=== PATIENT | male | born 1940 | race Caucasian/White ===

== ENCOUNTER 2020-02-12 07:28 | Outpatient (CLI) | payer MEDICARE, OTHER, SELFPAY ==
--- NOTE | 2020-02-12 07:39 | ECHO_ITS ---
Patient Info Name: Mendez Smith Age: 79 years : 1940 Gender: Male Ht: 70 in Wt: 176 lbs BSA: 1.99 m2 HR: 70 bpm BP: 135 / 83 mmHg Technical Quality: Fair Exam Date: 02/12/2020 7:52 AM Exam Location: [facility] Patient Status: Outpatient Admit Date: 02/12/2020 Staff Ordering Physician: Demarcus Spencer MD Cook Pressure: Brittnee Aguillon RDCS Attending Provider: Demarcus Spencer MD Referring Physician: Johanna BLOOM; Exam Type: CA echo doppler color flow Study Info Indications R01.1 - Cardiac murmur, unspecified Complete two-dimensional, color flow and Doppler transthoracic echocardiogram is performed. Summary 1. Left ventricular chamber dimension is normal. 2. Left ventricular systolic function is normal, estimated at 65-70%. 3. There is mildly increased left ventricular wall thickness. 4. The left ventricular diastolic function is grade I diastolic dysfunction. 5. E/e' 12 is mildly elevated. 6. There is moderate aortic valve sclerosis. 7. There is mild aortic valve stenosis with a peak velocity of 190 cm/s, mean gradient of 9 mmHg, and aortic valve area of 2.2 cm2. 8. There is mild aortic valve regurgitation. 9. The mitral valve has mildly calcified annulus. 10. There is trace tricuspid valve regurgitation. 11. No pulmonary hypertension, estimated pulmonary arterial systolic pressure is 37 mmHg. Left Ventricle E/e' 12 is mildly elevated. Left ventricular chamber dimension is normal. Left ventricular systolic function is normal, estimated at 65-70%. There is mildly increased left ventricular wall thickness. The left ventricular diastolic function is grade I diastolic dysfunction. Right Ventricle Right ventricular chamber dimension is normal. Right ventricular systolic function is normal. Left Atria Left atrial chamber dimension is normal. Right Atria Right atrial chamber dimension is normal. Aortic Valve The aortic valve is trileaflet. There is moderate aortic valve sclerosis. There is mild aortic valve stenosis with a peak velocity of 190 cm/s, mean gradient of 9 mmHg, and aortic valve area of 2.2 cm2. There is mild aortic valve regurgitation. Pulmonic Valve There is no pulmonic regurgitation. Mitral Valve The mitral valve has mildly calcified annulus. There is no mitral valve stenosis. There is no mitral valve regurgitation. Tricuspid Valve There is trace tricuspid valve regurgitation. No pulmonary hypertension, estimated pulmonary arterial systolic pressure is 37 mmHg. Pericardium/Pleural There is no pericardial effusion. Inferior Vena Cava Normal inferior vena cava with >50% collapse upon inspiration consistent with normal right atrial pressure, 5 mmHg. Aorta The aortic root size at the sinus of Valsalva is normal. Left Ventricular Outflow Tract Name Value Normal LVOT 2D LVOT Diameter 2.0 cm LVOT Doppler LVOT Peak Gradient 7 mmHg LVOT Mean Gradient 4 mmHg LVOT VTI 27 cm LVOT VTI/AV VTI Ratio 0.7 LVOT Stroke Volum
== END 2020-02-12 07:29 | disposition home or self-care (01) ==
LOC: ANHCARD 07:30
PROVIDERS: PCP Family Medicine; Visit Provider Family Medicine
DX: R01.1 Cardiac murmur, unspecified (principal)
CPT/HCPCS: 93306

== ENCOUNTER 2020-07-20 01:27 | Outpatient (CLI) | payer MEDICARE, OTHER, SELFPAY ==
[2020-07-20 20:39] LABS: SARS-CoV-2 RNA PCR Negative
== END 2020-07-20 01:28 | disposition home or self-care (01) ==
LOC: ANHCOVIDDT 01:28
PROVIDERS: PCP Family Medicine; Visit Provider Internal Medicine Gastroenterology
DX: Z01.812 Encounter for preprocedural laboratory examination (principal); Z11.59 Encounter for screening for other viral diseases
CPT/HCPCS: 87635; C9803; U0003

== ENCOUNTER 2020-07-22 00:44 | Day surgery (SDC) | payer MEDICARE, OTHER, SELFPAY ==
[2020-07-16 14:04] VITALS: BMI 25.9
[2020-07-22 07:01] VITALS: BP 136/77; PULSE 70; RESP 16; TEMP 36.3; O2SAT 99; BMI 25.9
[2020-07-22] MEDS: LACTATED RINGERS 1,000 ML 150 ML IV CONT (07:09)
--- NOTE | 2020-07-22 07:13 | WPDANESEPPF ---
Anes - Initial Pre Proc Eval Procedure: Operation Date: 07/22/20 08:00 Proposed Procedures p Esophagogastroduodenoscopy - William Roa MD Date/Time: 07/22/20 07:13 Surgeon: William Roa MD Pre Op Diagnosis: Gordon's Esophagus Patient Data Age: 80 Gender: M Height: 5 ft 10 in Weight: 81.8 kg Last Vital Signs Temp 36.3 C L 07/22/20 07:01 Pulse 70 07/22/20 07:01 Resp 16 07/22/20 07:01 BP 136/77 07/22/20 07:01 Pulse Ox 99 07/22/20 07:01 Allergies Allergy/AdvReac Type Severity Reaction Status Date / Time No Known Allergies Allergy Unverified 07/22/20 07:13 Home Medications Medication Instructions Recorded Confirmed Type hydrochlorothiazide 12.5 mg tablet 12.5 mg PO DAILY 07/30/19 07/22/20 History benzonatate 200 mg capsule 200 mg PO TID PRN #30 cap 11/18/19 07/22/20 Rx amlodipine 10 mg tablet 10 mg PO DAILY #90 tablet 06/01/20 07/22/20 Rx finasteride 5 mg tablet 5 mg PO DAILY #90 tablet 06/01/20 07/22/20 Rx lisinopril 40 mg tablet 40 mg PO BID #360 tablet 06/01/20 07/22/20 Rx omeprazole 20 mg capsule,delayed 20 mg PO DAILY #90 cap 06/01/20 07/22/20 Rx release simvastatin 40 mg tablet 40 mg PO DAILY #90 tablet 06/01/20 07/22/20 Rx testosterone 20.25 mg/1.25 gram 1 pump TOPICAL DAILY #150 gm 07/06/20 07/22/20 Rx (1.62 %) transdermal gel pump Patient hx anesthesia problems: none Family hx anesthesia problems: none PMFSH Past Medical History Medical History Aortic valve stenosis with insufficiency Flat feet, bilateral Gastroesophageal reflux disease Grade I diastolic dysfunction Heart murmur Hypertension Hypogonadism male Macular degeneration Polyp of colon Family History Family History Mother No problems noted. Father Acute myocardial infarction Social History Social History Smoking packs per day: 1 Smoking cigarettes per day: 20.0 Years smoked: 30 Smoking pack-years: 30.00 Smoking status: Former smoker Tobacco type: cigarettes Alcohol intake: current Alcohol use details: 5OZ PER DAY Substance use: never Substance use type: does not use Living arrangements: with family Spiritual care concerns: No Anes - Eval Final PreProcedure Day of Procedure 07/22/20 07:13 Patient weight: overweight Heart: regular rate and rhythm Lungs: clear to auscultation Airway: Mallampati scale class II Neurological: alert and oriented Last oral intake: >/= 8 hours ASA classification: III Emergent: no Anesthetic plan: proceed Anesthesia type and monitoring: general GIVS and standard monitoring Informed Consent: The patient's anesthetic plan and its attendant risks and benefits were discussed with the patient/family/POA. Questions were solicited and answers provided to the satisfaction of the patient/family/POA.
--- NOTE | 2020-07-22 08:04 | WPDGICN ---
Assessment and Plan Assessment and plan (1) Gastroesophageal reflux disease: Code(s): K21.9 - Gastro-esophageal reflux disease without esophagitis Status: Acute (2) Gordon's esophagus: Code(s): K22.70 - Gordon's esophagus without dysplasia Status: Acute Assessment and Plan: Patient with known history of Gordon's esophagus. Plan is to continue anti-reflux measures. Omeprazole daily. Follow-up endoscopy for biopsies at about 3 year intervals. This report follow separately. (3) Polyp of colon: Code(s): K63.5 - Polyp of colon Status: Acute Assessment and Plan: Patient has a history of colon polyps in the past. Most recent colonoscopy 2016 showed adenomatous colon polyps. Follow-up endoscopy 2022 is advised. GI Consult Note Consult date/time: 07/22/20 08:04 HPI: Mendez Smith is a 80 year old male Seen in evaluation at the request Dr. Spencer. Patient has a history of Gordon's esophagus. Most recent endoscopy was 3 years ago. Patient states his current weight appetite bowel movements are normal. He denies heartburn. Denies any dysphagia or bleeding. He has been maintained on omeprazole 20 mg p.o. daily. Patient additionally has a history of tubular adenomatous colon polyps in 2017. His family history is noncontributory. Current weight appetite bowel movements are normal. Review of Systems Review of Systems: All systems reviewed & are unremarkable except as noted in HPI and below PMFSH Past Medical History Medical History Aortic valve stenosis with insufficiency Flat feet, bilateral Gastroesophageal reflux disease Grade I diastolic dysfunction Heart murmur Hypertension Hypogonadism male Macular degeneration Polyp of colon Family History Family History Mother No problems noted. Father Acute myocardial infarction Social History Social History Smoking packs per day: 1 Smoking cigarettes per day: 20.0 Years smoked: 30 Smoking pack-years: 30.00 Smoking status: Former smoker Tobacco type: cigarettes Alcohol intake: current Alcohol use details: 5OZ PER DAY Substance use: never Substance use type: does not use Living arrangements: with family Spiritual care concerns: No Meds Home Medications and Allergies Home Medications Medication Instructions Recorded Confirmed Type hydrochlorothiazide 12.5 mg tablet 12.5 mg PO DAILY 07/30/19 07/22/20 History benzonatate 200 mg capsule 200 mg PO TID PRN #30 cap 11/18/19 07/22/20 Rx amlodipine 10 mg tablet 10 mg PO DAILY #90 tablet 06/01/20 07/22/20 Rx finasteride 5 mg tablet 5 mg PO DAILY #90 tablet 06/01/20 07/22/20 Rx lisinopril 40 mg tablet 40 mg PO BID #360 tablet 06/01/20 07/22/20 Rx omeprazole 20 mg capsule,delayed 20 mg PO DAILY #90 cap 06/01/20 07/22/20 Rx release simvastatin 40 mg tablet 40 mg PO DAILY #90 tablet 06/01/20 07/22/20 Rx testosterone 20.25 mg/1.25 gram 1 pump TOPICAL DAILY #150 gm 07/06/20 07/22/20 Rx (1.62 %) transdermal gel pump Allergies Allergy/AdvReac Type Severity Reaction Status Date / Time No Known Allergies Allergy Unverified 07/22/20 07:13 Vital Signs Vital Signs - 24 hr 07/22/20 07:01 Temperature 97.3 F L Pulse Rate 70 Respiratory Rate 16 Blood Pressure 136/77 Pulse Oximetry 99 Exam Narrative: Exam Narrative: Physical exam reveals patient to be alert. Vital signs stable. HEENT exam unremarkable. Lungs are clear to auscultation and percussion heart is without murmur or extra sounds. Abdominal exam bowel sounds are present soft nontender with no organomegaly. Digital external rectal exam normal.
[2020-07-22 08:23] VITALS: BP 101/66; PULSE 69; RESP 24; O2SAT 97
[2020-07-22 08:33] VITALS: BP 100/62; PULSE 69; RESP 16; O2SAT 95
[2020-07-22 08:43] VITALS: BP 107/78; PULSE 66; RESP 18; O2SAT 96
== END 2020-07-22 08:50 | disposition home or self-care (01) ==
PROVIDERS: PCP Family Medicine; Visit Provider Internal Medicine Gastroenterology
PROC: 0DJ08ZZ Inspection of Upper Intestinal Tract, Via Natural or Artificial Opening Endoscopic (ICD-10-PCS; CPT 43235; principal; 2020-07-22 08:00)
DX: K22.70 Barrett's esophagus without dysplasia (principal); K21.9 Gastro-esophageal reflux disease without esophagitis; I10 Essential (primary) hypertension; R01.1 Cardiac murmur, unspecified; I35.2 Nonrheumatic aortic (valve) stenosis with insufficiency; M21.42 Flat foot [pes planus] (acquired), left foot; M21.41 Flat foot [pes planus] (acquired), right foot; E29.1 Testicular hypofunction; H35.30 Unspecified macular degeneration; Z87.891 Personal history of nicotine dependence; Z86.010 Personal history of colon polyps
CPT/HCPCS: 43239; 88305; J2001; J2704; J7120

== ENCOUNTER → 2020-10-22 06:52 | Outpatient (CLI) | payer MEDICARE, OTHER, SELFPAY ==
[2020-10-22 20:53] LABS: SARS-CoV-2 RNA PCR Positive
== END ==
PROVIDERS: PCP Family Medicine; Visit Provider Family Medicine
DX: U07.1 COVID-19 (principal)
CPT/HCPCS: C9803; U0003; U0005

== ENCOUNTER 2020-12-24 15:10 | Outpatient (CLI) | payer MEDICARE, OTHER, SELFPAY | END 2020-12-24 15:11 | disposition home or self-care (01) | LOC: ANHCOVIDVC 15:10 | PROVIDERS: PCP Family Medicine | DX: Z23 Encounter for immunization (principal) | CPT/HCPCS: 0001A; 91300 ==

== ENCOUNTER 2021-01-14 15:03 | Outpatient (CLI) | payer MEDICARE, OTHER, SELFPAY | END 2021-01-14 15:04 | disposition home or self-care (01) | LOC: ANHCOVIDVC 15:03 | PROVIDERS: PCP Family Medicine | DX: Z23 Encounter for immunization (principal) | CPT/HCPCS: 0002A; 91300 ==

== ENCOUNTER 2023-01-12 00:08 | Day surgery (SDC) | payer MEDICARE, OTHER, SELFPAY ==
[2022-12-29 13:35] VITALS: BMI 26.6
[2023-01-12 07:39] VITALS: BP 132/69; PULSE 84; RESP 16; TEMP 36.4; O2SAT 95; BMI 26.4
[2023-01-12] MEDS: LACTATED RINGERS 1,000 ML 150 ML IV CONT (08:04)
--- NOTE | 2023-01-12 08:55 | PM.HPGS ---
History of Present Illness History of Present Illness Consent: Risks, benefits, and alternatives have been discussed and questions answered. Patient agrees to proceed with procedure. Chief complaint: neoplasm screening Narrative: Mendez Smith is a 82 year old male Presents for screening colonoscopy. Patient's current weight appetite and bowel movements are normal. Patient denies abdominal pain. He has had no bleeding. Past medical history significant for colon polyps in 2017. Patient also has a history of Gordon's esophagus recent EGD 2019 revealed no dysplasia. Patient presents today for screening colonoscopy. Review of Systems Review of Systems: Review of systems noncontributory. [facility] Past Medical History Medical History (Updated 01/12/23 @ 08:57 by William Roa MD) Acute bronchitis Acute non-recurrent maxillary sinusitis Aortic valve stenosis with insufficiency echocardiogram on 02/12/2020 with mild aortic stenosis and aortic regurgitation with mild tricuspid regurgitation. BMI 25.0-25.9,adult Chronic pain in left shoulder COVID-19 (10/20/20) Encounter for prostate cancer screening Flat feet, bilateral Gastroesophageal reflux disease Grade I diastolic dysfunction Heart murmur Hypertension Hypogonadism male Total testosterone 987 with free testosterone 7.0 on 01/21/2022. Ingrown right big toenail (~11/2022) Macular degeneration Overweight (BMI 25.0-29.9) Pain involving joints of fingers of both hands Polyp of colon Colonoscopy every [address] Roa Seasonal allergic rhinitis Family History Family History Mother No problems noted. Father Acute myocardial infarction Social History Social History (Updated 08/25/22 @ 15:04 by Adelina Woodruff MA) Smoking packs per day: 1 Smoking cigarettes per day: 20.0 Years smoked: 30 Smoking pack-years: 30.00 Smoking status: Never smoker Tobacco type: cigarettes Alcohol intake: current Drinks per week: 7 Alcohol use details: 4 oz wine daily Substance use: never Substance use type: does not use Current Housing: Decline to Answer Concerned About Future Housing: Decline to Answer Difficulty Paying Gas/Electric Bills: Decline to Answer Difficulty Paying for Meds: Decline to Answer Currently Unemployed: Decline to Answer Education: Decline to Answer Difficulty w/ Childcare or Family Care: Decline to Answer Living arrangements: with family Spiritual care concerns: No Meds Home Medications and Allergies Home Medications Medication Instructions Recorded Confirmed Type fluticasone propionate 50 1 spray intranasal BID 02/09/21 01/12/23 History mcg/actuation nasal spray,suspension amlodipine 10 mg tablet 10 mg PO DAILY #90 tabs 06/13/22 01/12/23 Rx finasteride 5 mg tablet 5 mg PO DAILY #90 tabs 06/13/22 01/12/23 Rx omeprazole 20 mg capsule,delayed 20 mg PO DAILY #90 caps 06/13/22 01/12/23 Rx release simvastatin 40 mg tablet 40 mg PO DAILY #90 tabs 06/13/22 01/12/23 Rx testosterone (AndroGel) 1 pump topical DAILY #150 grams 07/11/22 01/12/23 Rx hydrochlorothiazide 12.5 mg tablet 12.5 mg PO DAILY #90 tabs 09/08/22 01/12/23 Rx lisinopril 40 mg tablet 40 mg PO BID #360 tabs 12/09/22 01/12/23 Rx Allergies Allergy/AdvReac Type Severity Reaction Status Date / Time No Known Allergies Allergy Verified 01/12/23 07:37 Vital Signs Vital Signs - 24 hr 01/12/23 07:39 Temperature 97.6 F Pulse Rate 84 Respiratory Rate 16 Blood Pressure 132/69 Pulse Oximetry 95 Oxygen Delivery Room Air Exam Narrative: Physical exam reveals patient to be alert. Vital signs stable. HEENT exam is unremarkable. Patient is anicteric. Lungs are clear to auscultation and percussion. Heart is without murmur or extra sounds. Abdomen bowel sounds are present soft nontender with no organomegaly. Digital external rectal exa
--- NOTE | 2023-01-12 09:35 | WPDANESEPPF ---
Anes - Initial Pre Proc Eval Procedure: Operation Date: 01/12/23 09:00 Proposed Procedures p Colonoscopy - William Roa MD Date/Time: 01/12/23 09:35 Surgeon: William Roa MD Pre Op Diagnosis: neoplasm screening Patient Data Age: 82 Gender: M Height: 1.75 m Weight: 81.2 kg Last Vital Signs Temp 97.6 F 01/12/23 07:39 Pulse 84 01/12/23 07:39 Resp 16 01/12/23 07:39 BP 132/69 01/12/23 07:39 Pulse Ox 95 01/12/23 07:39 O2 Del Method Room Air 01/12/23 07:39 Allergies Allergy/AdvReac Type Severity Reaction Status Date / Time No Known Allergies Allergy Verified 01/12/23 07:37 Home Medications Medication Instructions Recorded Confirmed Type fluticasone propionate 50 1 spray intranasal BID 02/09/21 01/12/23 History mcg/actuation nasal spray,suspension amlodipine 10 mg tablet 10 mg PO DAILY #90 tabs 06/13/22 01/12/23 Rx finasteride 5 mg tablet 5 mg PO DAILY #90 tabs 06/13/22 01/12/23 Rx omeprazole 20 mg capsule,delayed 20 mg PO DAILY #90 caps 06/13/22 01/12/23 Rx release simvastatin 40 mg tablet 40 mg PO DAILY #90 tabs 06/13/22 01/12/23 Rx testosterone (AndroGel) 1 pump topical DAILY #150 grams 07/11/22 01/12/23 Rx hydrochlorothiazide 12.5 mg tablet 12.5 mg PO DAILY #90 tabs 09/08/22 01/12/23 Rx lisinopril 40 mg tablet 40 mg PO BID #360 tabs 12/09/22 01/12/23 Rx Patient hx anesthesia problems: none Family hx anesthesia problems: none Results Review: All pre-operative results and documents have been reviewed as part of the pre-operative evaluation. [facility] Past Medical History Medical History (Updated 01/12/23 @ 08:57 by William Roa MD) Acute bronchitis Acute non-recurrent maxillary sinusitis Aortic valve stenosis with insufficiency echocardiogram on 02/12/2020 with mild aortic stenosis and aortic regurgitation with mild tricuspid regurgitation. BMI 25.0-25.9,adult Chronic pain in left shoulder COVID-19 (10/20/20) Encounter for prostate cancer screening Flat feet, bilateral Gastroesophageal reflux disease Grade I diastolic dysfunction Heart murmur Hypertension Hypogonadism male Total testosterone 987 with free testosterone 7.0 on 01/21/2022. Ingrown right big toenail (~11/2022) Macular degeneration Overweight (BMI 25.0-29.9) Pain involving joints of fingers of both hands Polyp of colon Colonoscopy every [address] Roa Seasonal allergic rhinitis Family History Family History Mother No problems noted. Father Acute myocardial infarction Social History Social History (Updated 08/25/22 @ 15:04 by Adelina Woodruff MA) Smoking packs per day: 1 Smoking cigarettes per day: 20.0 Years smoked: 30 Smoking pack-years: 30.00 Smoking status: Never smoker Tobacco type: cigarettes Alcohol intake: current Drinks per week: 7 Alcohol use details: 4 oz wine daily Substance use: never Substance use type: does not use Current Housing: Decline to Answer Concerned About Future Housing: Decline to Answer Difficulty Paying Gas/Electric Bills: Decline to Answer Difficulty Paying for Meds: Decline to Answer Currently Unemployed: Decline to Answer Education: Decline to Answer Difficulty w/ Childcare or Family Care: Decline to Answer Living arrangements: with family Spiritual care concerns: No Anes - Eval Final PreProcedure Day of Procedure 01/12/23 09:35 Patient weight: normal Heart: regular rate and rhythm Lungs: clear to auscultation Airway: Mallampati scale class II Neurological: alert and oriented Last oral intake: >/= 8 hours ASA classification: III Emergent: no Anesthetic plan: proceed Anesthesia type and monitoring: general GIVS and standard monitoring Results Review: All pre-operative results and documents have been reviewed as part of the pre-operative evaluation. Informed Consent: The patient's anesthetic plan and
[2023-01-12 10:03] VITALS: BP 123/55; PULSE 73; RESP 20; O2SAT 96
[2023-01-12 10:13] VITALS: BP 127/70; PULSE 70; RESP 16; O2SAT 98
[2023-01-12 10:23] VITALS: BP 115/69; PULSE 72; RESP 20; O2SAT 97
== END 2023-01-12 10:35 | disposition home or self-care (01) ==
PROVIDERS: PCP Family Medicine; Visit Provider Internal Medicine Gastroenterology
PROC: 0DJD8ZZ Inspection of Lower Intestinal Tract, Via Natural or Artificial Opening Endoscopic (ICD-10-PCS; CPT 45378; principal; 2023-01-12 09:00)
DX: Z12.11 Encounter for screening for malignant neoplasm of colon (principal); D12.5 Benign neoplasm of sigmoid colon; K64.8 Other hemorrhoids; I35.2 Nonrheumatic aortic (valve) stenosis with insufficiency; K21.9 Gastro-esophageal reflux disease without esophagitis; I11.9 Hypertensive heart disease without heart failure; H35.30 Unspecified macular degeneration
CPT/HCPCS: 45385; 88305; J2704; J7120

== ENCOUNTER → 2023-03-06 15:58 | Outpatient (CLI) | payer MEDICARE, OTHER, SELFPAY ==
--- NOTE | ~2023-03-06 | XR_ITS ---
EXAM: XR shoulder LT min 2V DATE: 03/06/2023 16:47 HISTORY: M25.512 - Pain in left shoulder . COMPARISON: None available. FINDINGS: Decreased mineralization. No fracture or dislocation. No lytic or blastic lesion. Mild AC joint and moderate glenohumeral joint osteoarthritic change. No erosion or periosteal change. Soft ti ssues within normal limits. 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 Reviewed, dictated and finalized at location K.
--- NOTE | ~2023-03-06 | XR_ITS ---
EXAM: XR hand BI arthritis min 3V DATE: 03/06/2023 16:46 HISTORY: left hand joint pain . COMPARISON: None available. FINDINGS: Decreased mineralization. No fracture or dislocation. No lytic or blastic lesion. Mild sca ttered degenerative changes, typical of osteoarthritis, most pronounced in the DIP joints. No erosion or periosteal change. Soft tissues within normal limits. IMPRESSION: Mild bilateral polyarticular arthritis. Reviewed, dictated and finalized at location K.
== END ==
PROVIDERS: PCP Family Medicine; Visit Provider Family Medicine
DX: M25.512 Pain in left shoulder (principal); G89.29 Other chronic pain; M79.642 Pain in left hand; M79.641 Pain in right hand; M19.042 Primary osteoarthritis, left hand; M19.041 Primary osteoarthritis, right hand; M19.012 Primary osteoarthritis, left shoulder
CPT/HCPCS: 73030; 73130

== ENCOUNTER 2025-01-14 10:44 | Outpatient (CLI) | payer MEDICARE, SELFPAY ==
--- NOTE | ~2025-01-14 | MR_ITS ---
MRI of the right knee Clinical history: Osteoarthritis Technique: Coronal proton density and proton density-weighted images, sagittal proton-density and T2 fat-sat images, and axial proton-density fat-saturated images were acquired. Findings: Anterior and posterior cruciate ligaments are intact. Medial collateral ligament and the la teral collateral ligament complex are intact. Popliteus tendon is intact. There is a large vertical tear of the posterior horn of the medial meniscus, with complex tearing pro bably extending into the body segment. No lateral meniscal tear seen. There is subchondral insufficiency fracture of the medial tibial plateau with extensive surrounding a morphous marrow edema throughout the medial tibial plateau region extending to the central aspect of the proximal tibia. There is focal grade 4 chondral fissure at the patellar apex. There are patchy ar eas of moderate to high-grade chondromalacia of the femoral trochlea. Extensor mechanism is intact. Small joint effusion present. Small Zambrano cyst present. Impression: Subchondral insufficiency fracture of the medial tibial plateau with extensive surrounding amorphous marrow edema. Large vertical tear of the posterior horn medial meniscus with probable superimposed complex tearing in the body segment. Chondromalacia of the patellofemoral compartment, as detailed above. Small joint effusion and small Zambrano's cyst. Reviewed, dictated and finalized at location . Impression: Subchondral insufficiency fracture of the medial tibial plateau with extensive surrounding amorphous marrow edema. Large vertical tear of the posterior horn medial meniscus with probable superim posed complex tearing in the body segment. Chondromalacia of the patellofemoral compartment, as detailed above. Small joint effusion and small Zambrano's cyst.
== END 2025-01-14 10:45 | disposition home or self-care (01) ==
LOC: MICIMG 10:45
PROVIDERS: PCP Family Medicine; Visit Provider Orthopaedic Surgery
DX: S82.141A Displaced bicondylar fracture of right tibia, initial encounter for closed fracture (principal); X58.XXXA Exposure to other specified factors, initial encounter; R60.9 Edema, unspecified; S83.206A Unspecified tear of unspecified meniscus, current injury, right knee, initial encounter; M22.41 Chondromalacia patellae, right knee; M71.21 Synovial cyst of popliteal space [Baker], right knee; M17.11 Unilateral primary osteoarthritis, right knee
CPT/HCPCS: 73721